=== PATIENT | male | born 1980 | race Caucasian/White ===

== ENCOUNTER 2018-03-27 23:52 | Emergency (ER) | payer SELFPAY ==
[~2018-03-27] VITALS: Ht 188 cm; Wt 131.5 kg
[2018-03-28 00:05] VITALS: BP_SYST 140
--- NOTE | 2018-03-28 00:05 | NUR ---
Pt states that he has a headache with dry mouth and ringing of the ears. Pt reports N/V. Will continue to monitor. No distress noted. AAOx4.
--- NOTE | 2018-03-28 00:05 | NUR ---
Patient to ER bed 7 to gown for evaluation. Side rails up. Report given to Juan M RAMÍREZ.
--- NOTE | 2018-03-28 00:10 | NUR ---
ALICIA Fisher at bedside examining patient.
[2018-03-28] MEDS ORDERED: KETOROLAC TROMETHAMINE 30 MG VIAL IM ONE (00:15)
[2018-03-28 01:05] VITALS: BP_SYST 140
--- NOTE | 2018-03-28 01:05 | NUR ---
Patient given written and verbal discharge instructions and verbalizes understanding. ER MD discussed with patient the results and treatment provided. Patient in stable condition. ID arm band removed. Rx of Motrin given. Patient educated on pain management and to follow up with PMD. Pain Scale 0/10. Opportunity for questions provided and answered. Medication side effect fact sheet provided.
== END 2018-03-28 01:05 | disposition home or self-care (01) ==
LOC: SED 23:52
DX: R51 Headache (principal); I10 Essential (primary) hypertension; E11.9 Type 2 diabetes mellitus without complications
CPT/HCPCS: 96372; 99283; J1885